=== PATIENT | female | born 1990 | race Caucasian/White ===

== ENCOUNTER 2017-12-05 09:19 | Emergency (ER) | END 2017-12-05 12:10 | disposition home or self-care (01) ==

== ENCOUNTER 2017-12-07 06:28 | Day surgery (SDC) | END 2017-12-07 15:43 | disposition home or self-care (01) ==

== ENCOUNTER 2018-05-11 09:17 | Emergency (ER) | END 2018-05-11 14:43 | disposition home or self-care (01) ==

== ENCOUNTER 2018-05-14 09:34 | Day surgery (SDC) | END 2018-05-14 20:15 | disposition home or self-care (01) ==

== ENCOUNTER 2018-09-05 10:36 | Emergency (ER) | payer BC ==
[~2018-09-05] VITALS: Ht 167.6 cm; Wt 82.1 kg
[~2018-09-05 10:36] MED LIST: FER325 PO
[2018-09-05 10:40] VITALS: Ht 167.6 cm; Wt 82.1 kg
[2018-09-05] MEDS ORDERED: LIDOCAINE/MYLANTA 40 ML BTL PO STA (12:23)
[2018-09-05] MEDS ORDERED: MAG-19 PO (13:23)
[2018-09-05] MEDS ORDERED: ACET500T98 PO (13:23)
--- NOTE | 2018-09-05 13:33 | ERD ---
ER Documentation Chief Complaint Chief Complaint Complains of abdominal apin x 3 days HPI 28-year-old female presents for abdominal pain times 3 days. Pain is noted to be in the umbilical area. He is known to be intermittent. Pain is nonradiating, rated 4 out of 10. No prior similar symptoms. She states that she had a right ovarian cyst surgery about a year ago. She is currently on her menstrual period. She also complains of low back pain. Low back pain is noted to be mild and nonradiating. She denies any nausea, vomiting, diarrhea. She denies any fevers or chills. She also denies dysuria. She notes that the pain is worse with eating. ROS All systems reviewed and are negative except as per history of present illness. Medications Home Meds Active Scripts Ciprofloxacin Hcl* (Ciprofloxacin Hcl*) 500 Mg Tablet, 500 MG PO BID for UTI for 5 Days, #10 TAB Prov:TOMMY RILEY DO 09/05/18 Magaldrate/Simethicone* (Mylanta*) 355 Ml Susp, 30 ML PO QID PRN for GASTROINTESTINAL UPSET, #1 BOTTLE Prov:TOMMY RILEY 09/05/18 Acetaminophen (Tylenol) 500 Mg Tab, 500 MG PO Q4H PRN for PAIN, #30 TAB Prov:TOMMY RILEY 09/05/18 Reported Medications Ferrous Sulfate* (Ferrous Sulfate*) 325 Mg Tabec, 325 MG PO DAILY, TAB 05/14/18 Allergies Allergies: Coded Allergies: No Known Allergy (Unverified , 05/14/18) PMhx/Soc History of Surgery: Yes (ovarian surgery) Anesthesia Reaction: No Hx Neurological Disorder: No Hx Respiratory Disorders: No Hx Cardiac Disorders: No Hx Psychiatric Problems: No Hx Miscellaneous Medical Probl: No Hx Alcohol Use: No Hx Substance Use: No Hx Tobacco Use: No Physical Exam Vitals Vital Signs Date Temp Pulse Resp B/P (MAP) Pulse Ox O2 O2 Flow FiO2 Time Delivery Rate 09/05/18 97.6 82 20 120/73 98 10:40 (89) Physical Exam Const: No acute distress Resp: Clear to auscultation bilaterally Cardio: Regular rate and rhythm, no murmurs, bilateral dorsalis pedis pulses intact Abd: Soft, non distended. Normal bowel sounds, mild epigastric tenderness to palpation, no McBurney's point tenderness, no Navarrete sign, no rebound or guarding noted. Skin: No petechiae or rashes Back: Lumbar paravertebral muscle tenderness palpation, no midline tenderness, no flank pain. Ext: No cyanosis, or edema Neur: Awake and alert, bilateral lower extremity sensation intact Psych: Normal Mood and Affect Result Diagram: 09/05/18 1235 09/05/18 1235 Results 24 hrs Laboratory Tests Test 09/05/18 12:28 09/05/18 12:35 09/05/18 12:38 POC Beta HCG, Qualitative NEGATIVE White Blood Count 5.6 10^3/ul Red Blood Count 4.88 10^6/ul Hemoglobin 14.1 g/dl Hematocrit 42.7 % Mean Corpuscular Volume 87.5 fl Mean Corpuscular Hemoglobin 28.9 pg Mean Corpuscular 33.0 g/dl Hemoglobin Concent Red Cell Distribution Width 12.3 % Platelet Count 254 10^3/UL Mean Platelet Volume 9.5 fl Immature Granulocytes % 0.200 % Neutrophils % 53.1 % Lymphocytes % 24.0 % Monocytes % 6.2 % Eosinophils % 16.0 % Basophils % 0.5 % Nucleated Red Blood Cells % 0.0 /100WBC Immature Granulocytes # 0.010 10^3/ul Neutrophils # 3.0 10^3/ul Lymphocytes # 1.4 10^3/ul Monocytes # 0.4 10^3/ul Eosinophils # 0.9 10^3/ul Basophils # 0.0 10^3/ul Nucleated Red Blood Cells # 0.0 10^3/ul Sodium Level 140 mmol/L Potassium Level 4.1 mmol/L Chloride Level 108 mmol/L Carbon Dioxide Level 24 mmol/L Anion Gap 8 Blood Urea Nitrogen 10 mg/dl Creatinine 0.61 mg/dl Est Glomerular Filtrat > 60 mL/min Rate mL/min Glucose Level 97 mg/dl Calcium Level 9.5 mg/dl Total Bilirubin 0.0 mg/dl Direct Bilirubin 0.00 mg/dl Indirect Bilirubin 0.0 mg/dl Aspartate Amino Transf (AST/SGOT) 27 IU/L Alanine 37 IU/L Aminotransferase (ALT/SGPT) Alkaline Phosphatase 61 IU/L Total Protein 8.2 g/dl Albumin 4.3 g/dl Globulin 3.90 g/dl Albumin/Globulin Ratio 1.10 Lipase 79 U/L Urine Color YELLOW Urine Clarity SLIGHTLY CLOUDY Urine pH 5.0 Urine Specific [place] 1.011 Urine Ketones NEGATIVE mg/dL Urine Nitrite NEGATIVE mg/dL Urine Bilirubin NEGATIVE mg/dL Urine Urobilinogen NEGATIVE mg/dL Urine Leukocyte Esterase NEGATIVE Rylan/ul Urine Microscopic RBC > 182 /HPF Urine Microscopic WBC 14 /HPF Urine Squamous Epithelial Cells FEW /HPF Urine Bacteria FEW /HPF Urine Hemoglobin 3+ mg/dL Urine Glucose NEGATIVE mg/dL Urine Total Protein 1+ mg/dl Current Medications Medications Dose Sig/Víctor Start Time Status Last (Trade) Ordered Route PRN Stop Time Admin Dose Reason Admin 40 ml ONCE STAT 09/05/18 DC 09/05/18 Miscellaneous PO 12:23 09/05/18 13:00 Medication 12:25 (Gi Cocktail (2)) Procedures/MDM Medical Decision Making: Differential diagnosis includes but not limited to acute gastroenteritis, appendicitis, cholecystitis, pancreatitis, ruptured ovarian cyst, acute gastritis, UTI. Patient appeared well on physical exam. Nontoxic appearing. Abdominal examination relatively benign. There is low suspicion for an acute abdomen. Given history of ovarian cyst a pelvic ultrasound was done. Imaging: Pelvic ultrasound showed small amount of free fluid in the cul-de-sac. CBC showed no WBC elevation to suggest systemic infection, no anemia. CMP showed normal electrolytes, normal renal and liver function. UA consistent with a urinary tract infection. There was a lot of RBCs which cou ld be due to patient's current menstrual period. Urine test was negative. ED course: Patient was given GI cocktail. Symptoms improved with treatment. Prescription(s): Patient given prescription for Tylenol and Mylanta, Cipro. Given ultrasound finding patient may have had a ruptured ovarian cyst. There is also possibility the patient may have acute gastritis given pain worsens with eating. Given UA finding of elevated WBC patient and low back pain, there is possibility of pyelonephritis. Given prescription for Cipro. Patient advised to continue with Advil at home for pain. Advised that she may need [employer] follow-up. Patient advised to follow up with PCP in 1-2 days. Patient advised to return to ED for new or worsening symptoms. Patient stable on discharge from the ED. Disclaimer: Inadvertent spelling and grammatical errors are likely due to EHR/dictation software use and do not reflect on the overall quality of patient care. Also, please note that the electronic time recorded on this note does not necessarily reflect the actual time of the patient encounter. Departure Diagnosis: Primary Impression: Abdominal pain Abdominal location: lower abdomen, unspecified Qualified Codes: R10.30 - Lower abdominal pain, unspecified Condition: Fair Patient Instructions: Abdominal Pain Referrals: [facility] YOU HAVE RECEIVED A MEDICAL SCREENING EXAM AND THE RESULTS INDICATE THAT YOU DO NOT HAVE A CONDITION THAT REQUIRES URGENT TREATMENT IN THE EMERGENCY DEPARTMENT. FURTHER EVALUATION AND TREATMENT OF YOUR CONDITION CAN WAIT UNTIL YOU ARE SEEN IN YOUR DOCTORS OFFICE WITHIN THE NEXT 1-2 DAYS. IT IS YOUR RESPONSIBILITY TO MAKE AN APPOINTMENT FOR FOLOW-UP CARE. IF YOU HAVE A PRIMARY DOCTOR --you should call your primary doctor and schedule an appointment IF YOU DO NOT HAVE A PRIMARY DOCTOR YOU CAN CALL OUR PHYSICIAN REFERRAL HOTLINE AT IF YOU CAN NOT AFFORD TO SEE A PHYSICIAN YOU CAN CHOSE FROM THE FOLLOWING [facility] CL[facility] [address] [facility]. [facility] [address] [facility] [place] [address] [facility] [address] [facility] [facility] [phone] [facility]. [address] [place] [employer] [place] [address] [facility] [address] [place], [place] [phone] OFFICE FAX JONES CORTEZ [address] [place], [place] [phone] [place] [address] [place], [place] [phone] JAMSHID LEBLANC [address] [facility], [address] [address] [address] [address] [facility], [place], [place] [phone] [facility] [address] [place], [place] [id number] [address] [facility] [id number] - [address] RUST, [place] [address], [facility] [address] [address] FORD, [place] [address] [facility]. [address], [facility] [address] [address] SORIA, [place] [address] [place] [address] Additional Instructions: Llame al doctor MAANA y fide brandee VESNA PARA DENTRO DE 1-2 HERRON.Dgale a la secretaria que nosotros le instruimos hacer esta vesna.Avise o llame si hudson cond icin se empeora antes de la vesna. Regresa aqui si peor o no mejor. TOMMY RILEY DO Sep 05, 2018 13:33
[2018-09-05] MEDS ORDERED: CIPR500T4 PO (13:34)
== END 2018-09-05 13:47 | disposition home or self-care (01) ==
LOC: FTE 10:36
DX: R10.30 Lower abdominal pain, unspecified (principal)
CPT/HCPCS: 36415; 76856; 80053; 81001; 81025; 83690; 85025; Z7502; Z7610